=== PATIENT | male | born 1965 | race Caucasian/White ===

== ENCOUNTER 2024-10-28 10:22 | Outpatient (CLI) | payer OTHER | END 2024-10-28 10:23 | disposition home or self-care (01) | LOC: CSHULT 10:22 | PROVIDERS: ATTEND Physician Assistant | DX: E03.9 Hypothyroidism, unspecified (principal); R53.83 Other fatigue; E04.2 Nontoxic multinodular goiter | CPT/HCPCS: 76536 ==